=== PATIENT | male | born 1980 ===

== ENCOUNTER 2022-10-18 08:37 | Outpatient (CLI) | payer OTHER, SELFPAY ==
--- NOTE | 2022-11-06 22:34 | WPDSLEEPSTUD ---
Sleep Study Date of Study: 10/18/22 Ordering Provider: Karen Fink Interpreting Physician: Teresa Nguyen MD Sleep Study Type: BiPAP Titration Height: 1.83 m Weight: 137.892 kg Body Mass Index: 41.2 Neck Circumference (inches): 19.5 Galien: 18 Reason for Sleep Study Snoring, daytime hypersomnia Sleep History Marcus Mcpherson is a 42-year-old male with history of hypertension, hyperlipidemia, prediabetes, vitamin D deficiency, tobacco use quit in May 2022 who presents for an in-lab PAP titration. Per PCP records, patient had a sleep study 08/30/22 that revealed severe DEDRA. He rarely awakens from sleep short of breath. He rarely awakens at night with heartburn, belching or cough. He frequently snores and snores loud enough for others to complain. He occasionally has trouble sleeping when he has a cold. He occasionally wakes up gasping for breath during the night. He frequently has breathing problems at night. He occasionally sweats excessively at night. He frequently falls asleep during the day. He frequently falls asleep involuntarily and occasionally falls asleep while driving. He rarely notices his heart pounding or beating irregularly during the night. He never experiences loss of muscle tone with strong emotion. He never feels paralyzed on waking or falling asleep. He occasionally experiences vivid dreams upon waking or falling asleep. He does not feel afraid of going to sleep. He rarely has nightmares. He occasionally recalls his dreams. He occasionally has thoughts racing through his mind. He rarely feels sad or depressed. He occasionally feels anxiety or worry about things. He rarely notices parts of his body jerk. He frequently kicks during the night. He rarely feels crawling or aching feelings in his legs. He rarely feels leg pain at night. He rarely grinds his teeth during sleep and never has morning jaw pain. He rarely feels bothered by pain during the day and is rarely awakened by pain during the night. He occasionally wakes up feeling stiff in the morning. He occasionally wakes up feeling sore and achy in the morning with pain in his neck, spine, or joints. Normal bedtime is around 8 or 9pm on the weekdays and between 9pm to 11pm on the weekends, usually falling asleep in about 15 minutes. He typically gets about 6 to 8 hours of sleep per night. His wake-up time is around 6am on the weekdays and anywhere from 6am to 10am on the weekends. He typically wakes up several times per night and can be awake for 5 to 10 minutes each time. He occasionally watches television before falling asleep. He takes naps in the afternoon or evening. Habits: Former tobacco smoker. Drinks about 2 caffeinated beverages per day on the weekends. Drinks up to 10 beers per week. No recreational substance use. [facility] Past Medical History Medical History (Updated 11/07/22 @ 01:08 by Teresa Nguyen MD) Hyperlipemia Hypertension Obstructive sleep apnea Social History Social History (Updated 11/07/22 @ 01:20 by Teresa Nguyen MD) Social History: Smoked 1 to 1.5 packs per day, quit 2022. Also uses chewing tobacco. Smoking packs per day: 1 Smoking cigarettes per day: 20.0 Years smoked: 20 Smoking pack-years: 20.00 Smoking status: Former smoker Tobacco type: cigarettes and smokeless tobacco Smokeless tobacco user: chewing tobacco Alcohol intake: current Gender identity (if verbalized by the patient): Male Medications Medications: Losartan 50 mg a day Atorvastatin 20 mg a day Sleep Procedure This test was performed using the [employer] multiple channel system including EOG, EEG, submental EMG, EKG, nasal and oral airflow using thermistors and nasal pressure sensors, chest and abdominal belts for body position data, and pulse oximetry. Video monitoring was also performed. The study was scored using CMS guidelines. The patient was started on CPAP using a large [employer]Med AirFit F 20 full face mask and
[2022-11-07 10:34] VITALS: BMI 41.2
== END 2022-10-19 06:30 | disposition home or self-care (01) ==
LOC: ANHCSM 08:51
DX: G47.33 Obstructive sleep apnea (adult) (pediatric) (principal); I10 Essential (primary) hypertension; E78.5 Hyperlipidemia, unspecified; R73.03 Prediabetes; E55.9 Vitamin D deficiency, unspecified; Z87.891 Personal history of nicotine dependence
CPT/HCPCS: 95811